=== PATIENT | male | born 1970 | race Two or more races ===

== ENCOUNTER 2017-10-13 20:50 | Inpatient (IN) | payer OTHER ==
[~2017-10-13] VITALS: Ht 188 cm; Wt 102.0 kg
[2017-10-13 21:31] LABS: Basophils # (auto) 0 uL; Basophils % (auto) 0.3 % (0.0-2.0); Eosinophils # (auto) 0.1 uL; Eosinophils % (auto) 0.5 % (0.0-7.0); Hematocrit 43.4 % (41.0-53.0); Hemoglobin 14.9 g/dL (13.5-17.5); Lymphocytes # (auto) 2.6 uL; Lymphocytes % (auto) 22.9 % (10.0-50.0); Mean Corpuscular Hemoglobin 30.3 pg (28.0-32.0); Mean Corpuscular Hgb Conc. 34.4 g/dL (32.0-36.0); Monocytes # (auto) 0.9 uL; Monocytes % (auto) 7.7 % (0.0-12.0); Neutrophils # (auto) 7.8 uL; Neutrophils % (auto) 68.6 % (37.0-80.0); Platelet Count (auto) 209 10^3/uL (140-450); Red Blood Cells 4.93 10^6/uL (4.5-5.90); Red Cell Distribution Width 12.9 % (11.8-14.3); White Blood Cell 11.3 10^3/uL (4.4-10.8)
[2017-10-13 21:39] LABS: BUN/Creatinine Ratio 15.7; Calcium 8.7 mg/dL (8.5-10.1); Potassium 3.5 mmol/L (3.5-5.1)
[2017-10-14] MEDS ORDERED: PIPERACILLIN-TAZOB 3.375GM 50 ML IV ONE (00:45)
[2017-10-14] MEDS ORDERED: SODIUM CHLORIDE 0.9% 1,000 ML IV ONE ×2 (00:45)
[2017-10-14 01:47] LABS: Partial Thromboplastin Time 28.7 sec (22.64-33.71); Prothrombin Time 10.9 sec (9.37-12.3)
[2017-10-14] MEDS ORDERED: HYDROcodone-ACET 5/325MG TAB PO PRN (05:45)
[2017-10-14] MEDS ORDERED: ACETAMINOPHEN 500 MG TAB PO PRN (05:45)
[2017-10-14] MEDS ORDERED: ONDANSETRON HCL 4 MG/2 ML VIAL IV PRN (05:45)
[2017-10-14] MEDS ORDERED: DEXTROSE (50%) 50ML SYRG IV PRN (05:45)
[2017-10-14] MEDS: CLINDAMYCIN 600MG IV 50 ML IV SCH ×2 (06:00→14:30)
[2017-10-14] MEDS: cefTRIAXone 1GM/10ml IVPUSH 10 ML IV SCH (06:00)
[2017-10-14 06:57] LABS: Basophils # (auto) 0 uL; Basophils % (auto) 0.3 % (0.0-2.0); Eosinophils # (auto) 0.1 uL; Eosinophils % (auto) 0.8 % (0.0-7.0); Hematocrit 41.1 % (41.0-53.0); Hemoglobin 14.2 g/dL (13.5-17.5); Lymphocytes # (auto) 1.5 uL; Lymphocytes % (auto) 19.4 % (10.0-50.0); Mean Corpuscular Hemoglobin 30.4 pg (28.0-32.0); Mean Corpuscular Hgb Conc. 34.5 g/dL (32.0-36.0); Monocytes # (auto) 0.6 uL; Monocytes % (auto) 7.9 % (0.0-12.0); Neutrophils # (auto) 5.7 uL; Neutrophils % (auto) 71.6 % (37.0-80.0); Nucleated Red Blood Cells % 0.1 %; Platelet Count (auto) 185 10^3/uL (140-450); Red Blood Cells 4.67 10^6/uL (4.5-5.90); Red Cell Distribution Width 12.7 % (11.8-14.3)
[2017-10-14] MEDS: ACCU-CHEK COMFORT CURVE STRIP VI SCH ×4 (07:29→22:00)
[2017-10-14 07:33] LABS: BUN/Creatinine Ratio 16.4; Calcium 7.9 mg/dL (8.5-10.1); Potassium 3.4 mmol/L (3.5-5.1)
[2017-10-14] MEDS: InsuLIN REG 1unit/0.01ml Soln (100units/ml) SC SCH ×3 (08:02→18:11)
[2017-10-14 13:00] VITALS: BP 128/73
[2017-10-14 17:00] VITALS: BP 131/70
[2017-10-14] MEDS ORDERED: POTASSIUM CHL 20 Meq TABLET PO ONE (17:00)
[2017-10-14] MEDS ORDERED: VANCOMYCIN PER PHARMACY 0 MG IV SCH (17:00)
[2017-10-14] MEDS ORDERED: VANCOMYCIN 1GM/250ML 250 ML IV ONE (17:00)
[2017-10-14 18:28] LABS: Urine Bacteria NONE SEEN /hpf (None Seen); Urine Blood Negative /uL (Negative); Urine Specific Gravity 1.017 (1.001-1.035); Urine WBC 1 /hpf (0 - 3)
[2017-10-14 22:00] VITALS: BP 133/81
[2017-10-15] MEDS: InsuLIN REG 1unit/0.01ml Soln (100units/ml) SC SCH ×5 (00:18→22:26)
[2017-10-15] MEDS: VANCOMYCIN 1GM/250ML 250 ML IV SCH ×3 (01:08→17:00)
[2017-10-15 05:00] VITALS: BP 127/81
[2017-10-15] MEDS: cefTRIAXone 1GM/10ml IVPUSH 10 ML IV SCH (06:26)
[2017-10-15] MEDS: ACCU-CHEK COMFORT CURVE STRIP VI SCH ×4 (06:57→22:27)
[2017-10-15 07:01] LABS: BUN/Creatinine Ratio 14.8; Calcium 8.2 mg/dL (8.5-10.1); Potassium 3.9 mmol/L (3.5-5.1)
[2017-10-15 08:00] VITALS: BP 125/74
[2017-10-15 08:25] VITALS: BP 125/74
[2017-10-15 12:19] VITALS: BP 128/85
[2017-10-15 17:03] VITALS: BP 141/87
[2017-10-15 22:15] VITALS: BP 129/74
[2017-10-16] MEDS: VANCOMYCIN 1GM/250ML 250 ML IV SCH ×2 (02:21→09:23)
[2017-10-16 05:16] VITALS: BP 123/70
[2017-10-16] MEDS: cefTRIAXone 1GM/10ml IVPUSH 10 ML IV SCH (06:32)
[2017-10-16] MEDS: ACCU-CHEK COMFORT CURVE STRIP VI SCH ×4 (06:47→22:16)
[2017-10-16] MEDS: InsuLIN REG 1unit/0.01ml Soln (100units/ml) SC SCH ×4 (06:47→22:16)
[2017-10-16 08:00] VITALS: BP 124/75
[2017-10-16 08:34] VITALS: BP 124/75
[2017-10-16 12:36] VITALS: BP 128/82
[2017-10-16] MEDS: VANCOMYCIN 1,250 MG in D5W 5% 250 ML IV SCH ×2 (15:00→23:10)
[2017-10-16 17:08] VITALS: BP 129/84
[2017-10-16 22:04] VITALS: BP 126/72
[2017-10-17 05:00] VITALS: BP 122/76
[2017-10-17] MEDS: cefTRIAXone 1GM/10ml IVPUSH 10 ML IV SCH (06:26)
[2017-10-17] MEDS: ACCU-CHEK COMFORT CURVE STRIP VI SCH ×4 (06:49→22:45)
[2017-10-17] MEDS: InsuLIN REG 1unit/0.01ml Soln (100units/ml) SC SCH ×4 (06:49→21:57)
[2017-10-17] MEDS: VANCOMYCIN 1,250 MG in D5W 5% 250 ML IV SCH ×3 (07:02→23:45)
[2017-10-17 08:00] VITALS: BP 135/77
[2017-10-17 08:29] VITALS: BP 135/77
[2017-10-17] MEDS ORDERED: LORazepam 2MG/ML-1ML VIAL IV ONE (11:15)
[2017-10-17 12:57] VITALS: BP 135/77
[2017-10-17 16:59] VITALS: BP 142/77
[2017-10-17 18:00] VITALS: BP 143/81
[2017-10-18 05:00] VITALS: BP 121/74
[2017-10-18] MEDS: cefTRIAXone 1GM/10ml IVPUSH 10 ML IV SCH (05:07)
[2017-10-18] MEDS: VANCOMYCIN 1,250 MG in D5W 5% 250 ML IV SCH ×3 (05:07→23:09)
[2017-10-18] MEDS: ACCU-CHEK COMFORT CURVE STRIP VI SCH ×4 (05:17→22:11)
[2017-10-18] MEDS: InsuLIN REG 1unit/0.01ml Soln (100units/ml) SC SCH ×4 (05:32→22:12)
[2017-10-18 07:21] LABS: Basophils # (auto) 0 uL; Basophils % (auto) 0.5 % (0.0-2.0); Eosinophils # (auto) 0.2 uL; Eosinophils % (auto) 2.8 % (0.0-7.0); Hematocrit 42.5 % (41.0-53.0); Hemoglobin 14.8 g/dL (13.5-17.5); Lymphocytes # (auto) 2.1 uL; Lymphocytes % (auto) 32.2 % (10.0-50.0); Mean Corpuscular Hemoglobin 30.8 pg (28.0-32.0); Mean Corpuscular Hgb Conc. 34.9 g/dL (32.0-36.0); Mean Corpuscular Volume 88.2 fL (80.0-100.0); Monocytes # (auto) 0.4 uL; Monocytes % (auto) 6.7 % (0.0-12.0); Neutrophils # (auto) 3.8 uL; Neutrophils % (auto) 57.8 % (37.0-80.0); Nucleated Red Blood Cells % 0.1 %; Platelet Count (auto) 269 10^3/uL (140-450); Red Blood Cells 4.82 10^6/uL (4.5-5.90); Red Cell Distribution Width 12.3 % (11.8-14.3); White Blood Cell 6.6 10^3/uL (4.4-10.8)
[2017-10-18 07:39] LABS: BUN/Creatinine Ratio 13.5; Calcium 8.8 mg/dL (8.5-10.1); Potassium 4.1 mmol/L (3.5-5.1)
[2017-10-18 08:58] VITALS: BP 115/74
[2017-10-18 12:00] VITALS: BP 130/74
[2017-10-18 15:57] VITALS: BP 135/88
[2017-10-18 20:00] VITALS: BP 122/71
[2017-10-18 23:03] VITALS: BP 122/71
[2017-10-19] MEDS: cefTRIAXone 1GM/10ml IVPUSH 10 ML IV SCH (05:20)
[2017-10-19] MEDS: VANCOMYCIN 1,250 MG in D5W 5% 250 ML IV SCH (06:31)
[2017-10-19] MEDS: InsuLIN REG 1unit/0.01ml Soln (100units/ml) SC SCH ×5 (06:31→21:37)
[2017-10-19] MEDS: ACCU-CHEK COMFORT CURVE STRIP VI SCH ×4 (06:32→21:37)
[2017-10-19 07:50] VITALS: BP 121/77
[2017-10-19 09:09] LABS: Basophils # (auto) 0.1 uL; Basophils % (auto) 0.6 % (0.0-2.0); Eosinophils # (auto) 0.1 uL; Eosinophils % (auto) 1.7 % (0.0-7.0); Hematocrit 47.4 % (41.0-53.0); Hemoglobin 16.7 g/dL (13.5-17.5); Lymphocytes # (auto) 2.2 uL; Lymphocytes % (auto) 26.7 % (10.0-50.0); Mean Corpuscular Hemoglobin 30.8 pg (28.0-32.0); Mean Corpuscular Hgb Conc. 35.1 g/dL (32.0-36.0); Mean Corpuscular Volume 87.6 fL (80.0-100.0); Monocytes # (auto) 0.4 uL; Monocytes % (auto) 5.3 % (0.0-12.0); Neutrophils # (auto) 5.4 uL; Neutrophils % (auto) 65.7 % (37.0-80.0); Nucleated Red Blood Cells % 0.1 %; Platelet Count (auto) 298 10^3/uL (140-450); Red Blood Cells 5.41 10^6/uL (4.5-5.90); Red Cell Distribution Width 12.4 % (11.8-14.3); White Blood Cell 8.3 10^3/uL (4.4-10.8)
[2017-10-19 09:25] LABS: Calcium 9.3 mg/dL (8.5-10.1); Potassium 4.5 mmol/L (3.5-5.1)
[2017-10-19 09:27] LABS: BUN/Creatinine Ratio 13.1
[2017-10-19 09:29] LABS: INR 1.03 (0.9-1.15); Prothrombin Time 11.2 sec (9.37-12.3)
[2017-10-19 11:39] VITALS: BP 128/84
[2017-10-19] MEDS ORDERED: VANCOMYCIN 1,500 MG in D5W 5% 250 ML IV SCH (15:00)
[2017-10-19 16:03] VITALS: BP 118/81
[2017-10-19 22:04] VITALS: BP 137/74
[2017-10-19] MEDS: VANCOMYCIN 1,500 MG in SODIUM CHL 0.9% 250 ML IV SCH (23:00)
[2017-10-20] VITALS (7 sets, daily range): BP systolic 117–134; BP diastolic 70–85
[2017-10-20] MEDS: cefTRIAXone 1GM/10ml IVPUSH 10 ML IV SCH (05:28)
[2017-10-20] MEDS: VANCOMYCIN 1,500 MG in SODIUM CHL 0.9% 250 ML IV SCH ×2 (06:51→16:46)
[2017-10-20] MEDS: InsuLIN REG 1unit/0.01ml Soln (100units/ml) SC SCH ×4 (06:51→22:13)
[2017-10-20] MEDS: ACCU-CHEK COMFORT CURVE STRIP VI SCH ×4 (06:51→22:13)
[2017-10-20] MEDS ORDERED: MULTIPLE VITAMINS W/ MINERALS TAB PO ONE (10:15)
[2017-10-20] MEDS ORDERED: ASCORBIC ACID 500 MG TAB PO ONE (10:15)
[2017-10-20] MEDS ORDERED: LIDOCAINE 1% HCL (LOCAL ANESTH.) INJ 20ML MDV ID ONE (18:00)
[2017-10-20] MEDS: SODIUM CHLOR 0.9% PF (SALINE LOCK) 10ML VIAL IV SCH (22:07)
[2017-10-20] MEDS: MULTIPLE VITAMINS W/ MINERALS TAB PO SCH (22:08)
[2017-10-20] MEDS: ASCORBIC ACID 500 MG TAB PO SCH (22:08)
[2017-10-20] MEDS: VANCOMYCIN 1,250 MG in D5W 5% 250 ML IV SCH (23:08)
[2017-10-21] MEDS: VANCOMYCIN 1,250 MG in D5W 5% 250 ML IV SCH ×4 (05:02→23:07)
[2017-10-21 05:07] VITALS: BP 118/73
[2017-10-21] MEDS: cefTRIAXone 1GM/10ml IVPUSH 10 ML IV SCH (06:17)
[2017-10-21] MEDS: ACCU-CHEK COMFORT CURVE STRIP VI SCH ×4 (06:30→22:09)
[2017-10-21] MEDS: InsuLIN REG 1unit/0.01ml Soln (100units/ml) SC SCH ×4 (06:31→22:09)
[2017-10-21 07:30] VITALS: BP 120/69
[2017-10-21 09:00] VITALS: BP 120/69
[2017-10-21] MEDS: ASCORBIC ACID 500 MG TAB PO SCH ×2 (12:18→22:08)
[2017-10-21] MEDS: MULTIPLE VITAMINS W/ MINERALS TAB PO SCH ×2 (12:18→22:08)
[2017-10-21] MEDS: SODIUM CHLOR 0.9% PF (SALINE LOCK) 10ML VIAL IV SCH ×2 (12:18→22:08)
[2017-10-21 13:00] VITALS: BP 129/76
[2017-10-21 17:00] VITALS: BP 122/72
[2017-10-21 22:00] VITALS: BP 117/74
[2017-10-22] MEDS: VANCOMYCIN 1,250 MG in D5W 5% 250 ML IV SCH ×2 (05:02→11:04)
[2017-10-22 05:03] VITALS: BP_SYST 121; BP_SYST 159; BP_DIAS 113; BP_DIAS 74
[2017-10-22] MEDS: cefTRIAXone 1GM/10ml IVPUSH 10 ML IV SCH (05:37)
[2017-10-22] MEDS: ACCU-CHEK COMFORT CURVE STRIP VI SCH ×4 (05:37→21:26)
[2017-10-22] MEDS: InsuLIN REG 1unit/0.01ml Soln (100units/ml) SC SCH ×4 (05:37→21:26)
[2017-10-22 06:30] LABS: Basophils # (auto) 0 uL; Basophils % (auto) 0.6 % (0.0-2.0); Eosinophils # (auto) 0.1 uL; Eosinophils % (auto) 1.7 % (0.0-7.0); Hematocrit 46.9 % (41.0-53.0); Hemoglobin 16.4 g/dL (13.5-17.5); Lymphocytes # (auto) 2.4 uL; Lymphocytes % (auto) 32.9 % (10.0-50.0); Mean Corpuscular Hemoglobin 30.8 pg (28.0-32.0); Mean Corpuscular Volume 88.1 fL (80.0-100.0); Monocytes # (auto) 0.4 uL; Monocytes % (auto) 5.7 % (0.0-12.0); Neutrophils # (auto) 4.4 uL; Neutrophils % (auto) 59.1 % (37.0-80.0); Nucleated Red Blood Cells % 0.2 %; Platelet Count (auto) 325 10^3/uL (140-450); Red Blood Cells 5.32 10^6/uL (4.5-5.90); Red Cell Distribution Width 12.5 % (11.8-14.3); White Blood Cell 7.4 10^3/uL (4.4-10.8)
[2017-10-22 06:45] LABS: INR 1.02 (0.9-1.15); Prothrombin Time 11.1 sec (9.37-12.3)
[2017-10-22 06:47] LABS: Albumin 3.5 g/dL (3.4-5.0); Calcium 9.2 mg/dL (8.5-10.1); Potassium 3.8 mmol/L (3.5-5.1)
[2017-10-22 06:49] LABS: BUN/Creatinine Ratio 13.9
[2017-10-22 06:53] LABS: Bilirubin, Total 0.6 mg/dL (0.2-1.0); Total Protein 8.5 g/dL (6.4-8.2)
[2017-10-22 07:30] VITALS: BP 132/77
[2017-10-22] MEDS ORDERED: LIDOCAINE 1% HCL (LOCAL ANESTH.) INJ 20ML MDV ONE (08:34)
[2017-10-22] MEDS ORDERED: ceFAZolin 1GM VL ONE (08:34)
[2017-10-22] MEDS ORDERED: BUPIVACAINE W/ EPINEPH 0.25% INJ 50ML MDV ONE (08:35)
[2017-10-22] MEDS ORDERED: BUPIVACAINE 0.75% INJ 10ML MPV SDV IJ ONE (08:35)
[2017-10-22] MEDS ORDERED: MIDAZOLAM HCL 1MG/1ML-2 ML VIAL ONE (08:47)
[2017-10-22] MEDS ORDERED: KETAMINE HCL 1 ML ONE (08:47)
[2017-10-22] MEDS ORDERED: PROPOFOL 10 MG/ML 20 ML IV ONE (08:48)
[2017-10-22] MEDS ORDERED: diphenhdrAMINE HCL 50 MG/1 ML VL ONE (08:57)
[2017-10-22] MEDS ORDERED: GLYCOPYRROLATE 0.2 MG/ML 1ML VIAL ONE (08:58)
[2017-10-22 09:00] VITALS: BP 132/77
[2017-10-22] MEDS ORDERED: ONDANSETRON HCL 4 MG/2 ML VIAL IV ONE (09:15)
[2017-10-22] MEDS ORDERED: ACCU-CHEK COMFORT CURVE STRIP VI ONE (09:15)
[2017-10-22] MEDS ORDERED: NALOXONE HCL 0.4 MG/ML VIAL IV PRN (09:15)
[2017-10-22] MEDS ORDERED: HYDROmorphone HCL 2 MG/ML VL IV PRN ×2 (09:15)
[2017-10-22] MEDS ORDERED: NEOMYCIN-BACITRACIN-POLYM 15GM TOP OINT TOP ONE (09:18)
[2017-10-22] MEDS: MULTIPLE VITAMINS W/ MINERALS TAB PO SCH ×2 (11:03→21:25)
[2017-10-22] MEDS: SODIUM CHLOR 0.9% PF (SALINE LOCK) 10ML VIAL IV SCH ×2 (11:03→21:26)
[2017-10-22] MEDS: ASCORBIC ACID 500 MG TAB PO SCH ×2 (11:04→21:25)
[2017-10-22 12:22] VITALS: BP 113/74
[2017-10-22 18:04] VITALS: BP 127/83
[2017-10-22] MEDS: HYDROcodone-ACET 5/325MG TAB PO PRN (18:14)
[2017-10-22 22:00] VITALS: BP 124/73
[2017-10-22] MEDS: VANCOMYCIN 1,250 MG in SODIUM CHL 0.9% 250 ML IV SCH (23:11)
[2017-10-23 05:00] VITALS: BP 133/73
[2017-10-23] MEDS: VANCOMYCIN 1,250 MG in SODIUM CHL 0.9% 250 ML IV SCH ×4 (05:17→23:02)
[2017-10-23] MEDS: cefTRIAXone 1GM/10ml IVPUSH 10 ML IV SCH (05:18)
[2017-10-23] MEDS: HYDROcodone-ACET 5/325MG TAB PO PRN ×2 (05:25→10:33)
[2017-10-23] MEDS: ACCU-CHEK COMFORT CURVE STRIP VI SCH ×4 (05:25→22:14)
[2017-10-23] MEDS: InsuLIN REG 1unit/0.01ml Soln (100units/ml) SC SCH ×4 (05:26→22:15)
[2017-10-23 05:48] LABS: Basophils # (auto) 0.1 uL; Basophils % (auto) 0.8 % (0.0-2.0); Eosinophils # (auto) 0.2 uL; Eosinophils % (auto) 1.9 % (0.0-7.0); Hematocrit 43.6 % (41.0-53.0); Hemoglobin 15.1 g/dL (13.5-17.5); Lymphocytes # (auto) 2.1 uL; Lymphocytes % (auto) 26.2 % (10.0-50.0); Mean Corpuscular Hemoglobin 30.3 pg (28.0-32.0); Mean Corpuscular Hgb Conc. 34.6 g/dL (32.0-36.0); Mean Corpuscular Volume 87.7 fL (80.0-100.0); Monocytes # (auto) 0.5 uL; Monocytes % (auto) 6.2 % (0.0-12.0); Neutrophils # (auto) 5.2 uL; Neutrophils % (auto) 64.9 % (37.0-80.0); Nucleated Red Blood Cells % 0.1 %; Platelet Count (auto) 272 10^3/uL (140-450); Red Blood Cells 4.97 10^6/uL (4.5-5.90); Red Cell Distribution Width 12.2 % (11.8-14.3)
[2017-10-23 06:06] LABS: Calcium 8.7 mg/dL (8.5-10.1); Potassium 4.2 mmol/L (3.5-5.1)
[2017-10-23 07:30] VITALS: BP 113/68
[2017-10-23 09:00] VITALS: BP 113/68
[2017-10-23] MEDS: MULTIPLE VITAMINS W/ MINERALS TAB PO SCH ×2 (10:21→22:11)
[2017-10-23] MEDS: ASCORBIC ACID 500 MG TAB PO SCH ×2 (10:21→22:11)
[2017-10-23 13:00] VITALS: BP 127/75
[2017-10-23 17:00] VITALS: BP 123/75
[2017-10-23] MEDS: SODIUM CHLOR 0.9% PF (SALINE LOCK) 10ML VIAL IV SCH ×2 (18:13→22:15)
[2017-10-23 22:44] VITALS: BP 129/82
[2017-10-24] MEDS: VANCOMYCIN 1,250 MG in SODIUM CHL 0.9% 250 ML IV SCH ×3 (04:35→17:00)
[2017-10-24 05:42] VITALS: BP 126/78
[2017-10-24] MEDS: cefTRIAXone 1GM/10ml IVPUSH 10 ML IV SCH (06:23)
[2017-10-24] MEDS: InsuLIN REG 1unit/0.01ml Soln (100units/ml) SC SCH ×3 (06:31→17:00)
[2017-10-24] MEDS: ACCU-CHEK COMFORT CURVE STRIP VI SCH ×3 (06:31→17:00)
[2017-10-24 08:00] VITALS: BP 138/86
[2017-10-24 08:58] VITALS: BP 138/86
[2017-10-24 09:35] LABS: Basophils # (auto) 0.1 uL; Basophils % (auto) 0.8 % (0.0-2.0); Eosinophils # (auto) 0.1 uL; Eosinophils % (auto) 1.7 % (0.0-7.0); Hemoglobin 15.3 g/dL (13.5-17.5); Lymphocytes % (auto) 29.1 % (10.0-50.0); Mean Corpuscular Hemoglobin 30.5 pg (28.0-32.0); Mean Corpuscular Hgb Conc. 34.9 g/dL (32.0-36.0); Mean Corpuscular Volume 87.5 fL (80.0-100.0); Monocytes # (auto) 0.4 uL; Monocytes % (auto) 5.2 % (0.0-12.0); Neutrophils # (auto) 4.4 uL; Neutrophils % (auto) 63.2 % (37.0-80.0); Platelet Count (auto) 292 10^3/uL (140-450); Red Blood Cells 5.03 10^6/uL (4.5-5.90); Red Cell Distribution Width 12.5 % (11.8-14.3)
[2017-10-24 09:51] LABS: Calcium 8.7 mg/dL (8.5-10.1); Potassium 3.9 mmol/L (3.5-5.1)
[2017-10-24 09:53] LABS: BUN/Creatinine Ratio 17.8
[2017-10-24] MEDS: SODIUM CHLOR 0.9% PF (SALINE LOCK) 10ML VIAL IV SCH (10:00)
[2017-10-24] MEDS: MULTIPLE VITAMINS W/ MINERALS TAB PO SCH (10:37)
[2017-10-24] MEDS: ASCORBIC ACID 500 MG TAB PO SCH (10:37)
[2017-10-24 12:23] VITALS: BP 144/84
[2017-10-24 12:50] VITALS: BP 144/84
[2017-10-24 16:31] VITALS: BP 111/73
== END 2017-10-24 19:23 | disposition home health service (06) | DRG 617 ==
LOC: ER 20:50 → OVERFLOW 20:51 → WEST WING 10-14 11:00 → CENTRAL 10-14 13:28
PROVIDERS: ADMIT Nurse Practitioner Family; ATTEND Internal Medicine
PROC: 02HV33Z Insertion of Infusion Device into Superior Vena Cava, Percutaneous Approach (ICD-10-PCS; 2017-10-20)
PROC: 0Y6P0Z0 Detachment at Right 1st Toe, Complete, Open Approach (ICD-10-PCS; principal; 2017-10-22 08:48)
DX: E11.69 Type 2 diabetes mellitus with other specified complication (principal); M86.8X6 Other osteomyelitis, lower leg; M00.9 Pyogenic arthritis, unspecified; L97.511 Non-pressure chronic ulcer of other part of right foot limited to breakdown of skin; E11.621 Type 2 diabetes mellitus with foot ulcer; E87.6 Hypokalemia; L03.031 Cellulitis of right toe; Z79.4 Long term (current) use of insulin
CPT/HCPCS: 36415; 36569; 71010; 71045; 73700; 73718; 80048; 80053; 80202; 81001; 82962; 83036; 83605; 85025; 85610; 85730; 87040; 87077; 87186; 87205; 93926; 96365; 96366; 96367; J0690; J1815; J2001; J2250; J2543; J2704; J3490; J7060

== ENCOUNTER → 2018-02-06 | Outpatient (CLI) | payer OTHER ==
[2018-02-06 09:10] LABS: Calcium 9.6 mg/dL (8.5-10.1); Potassium 4.9 mmol/L (3.5-5.1)
== END | disposition home or self-care (01) ==
LOC: LAB 07:38
PROVIDERS: ATTEND Family Medicine
DX: E11.9 Type 2 diabetes mellitus without complications (principal); Z79.4 Long term (current) use of insulin
CPT/HCPCS: 36415; 80048; 82043; 83036